=== PATIENT | male | born 1975 | race Two or more races ===

== ENCOUNTER 2019-05-05 04:01 | Emergency (ER) | payer SELFPAY ==
--- NOTE | 2019-05-05 04:50 | ER Document Report ---
ED General - General Chief Complaint: Back Pain Stated Complaint: LOWER BACK PAIN Time Seen by Provider: 05/05/19 04:22 TRAVEL OUTSIDE OF THE [place] IN LAST 30 DAYS: No - HPI Notes: This is a 44-year-old gentleman who presents today with a complaint of difficulty urinating. Patient states that he has been having trouble urinating ever since earlier today. His last urine output was around 1 AM. He states that it was just a little bit. He denies any pain. He denies any back pain, flank pain no abdominal pain. He states, however, that he feels like there is urine in his bladder. He denies any previous history of urinary retention. He denies any hematuria or dysuria. Describes his symptoms as moderate. Past Medical History - Social History Smoking Status: Never Smoker Chew tobacco use (# tins/day): No Frequency of alcohol use: drinks daily Drug Abuse: None Family History: Reviewed & Not Pertinent Patient has suicidal ideation: No Patient has homicidal ideation: No Review of Systems - Review of Systems Gastrointestinal: denies: Abdominal pain, Nausea, Vomiting Genitourinary: Retention. denies: Burning, Dysuria, Frequency, Flank pain, Incontinence Male Genitourinary: denies: Testicular pain Musculoskeletal: denies: Back pain -: Yes All other systems reviewed and negative Physical Exam - Vital signs Vitals: Temp Pulse Resp BP Pulse Ox 97.9 F 100 14 135/89 H 100 05/05/19 04:08 05/05/19 04:08 05/05/19 04:08 05/05/19 04:08 05/05/19 04:08 - General General appearance: Appears well, Alert - Respiratory Respiratory status: No respiratory distress Chest status: Nontender Breath sounds: Normal Chest palpation: Normal - Cardiovascular Rhythm: Regular Heart sounds: Normal auscultation Murmur: No - Abdominal Inspection: Normal Distension: No distension Bowel sounds: Normal Tenderness: Nontender Organomegaly: No organomegaly - Back Back: Normal, Nontender. No: CVA tenderness - Neurological Neuro grossly intact: Yes Cognition: Normal Orientation: AAOx4 [place] Coma Scale Eye Opening: Spontaneous [place] Coma Scale Verbal: Oriented [place] Coma Scale Motor: Obeys Commands [place] Coma Scale Total: 15 Speech: Normal Motor strength normal: LUE, RUE, LLE, RLE Sensory: Normal - Psychological Associated symptoms: Normal affect, Normal mood - Skin Skin Temperature: Warm Skin Moisture: Dry Skin Color: Normal Course - Re-evaluation Re-evalutation: 05/05/19 04:50 Differential diagnosis includes acute urinary retention versus renal insufficiency versus UTI. Will check a bladder scan. Will check basic labs including renal function. 05/05/19 04:59 Bladder Scan reveals only 113 mL's of urine. That is not consistent with acute urinary retention. Patient may just be dehydrated. We will hydrate him. We will check basic labs. 05/05/19 05:53 Patient reevaluated. He is doing well. Renal function is normal. Still waiting for urine sample. I am told by the nurse that he actually went to the bathroom and urinated in the toilet without giving a sample. 05/05/19 06:39 Patient reevaluated. Patient is doing well. Urinalysis unremarkable. He is stable for discharge. He feels better now with IV fluids. - Vital Signs Vital signs: Temp Pulse Resp BP Pulse Ox 97.9 F 100 14 135/89 H 100 05/05/19 04:08 05/05/19 04:08 05/05/19 04:08 05/05/19 04:08 05/05/19 04:08 - Laboratory Result Diagrams: 05/05/19 05:06 05/05/19 05:06 Laboratory results interpreted by me: 05/05/19 05/05/19 05:06 06:16 Glucose 267 H Urine Glucose (UA) >=500 H Urine Ketones TRACE H Discharge - Discharge Clinical Impression: Difficulty urinating, Dehydration Condition: Stable Disposition: OTHER Instructions: Dehydration (OM) Referrals: [facility] [NO LOCAL MD] - Follow up as needed
[2019-05-05] MEDS ORDERED: NORMAL SALINE 1000 ML 1,000 ML IV ONE (04:58)
[2019-05-05 05:20] LABS: ABSOLUTE BASOPHILS # (AUTO) 0.1 10^3/uL (0.0-0.2); ABSOLUTE EOSINOPHILS # (AUTO) 0.1 10^3/uL (0.0-0.6); ABSOLUTE LYMPHOCYTES (AUTO) 1.6 10^3/uL (0.5-4.7); ABSOLUTE MONOCYTES (AUTO) 0.8 10^3/uL (0.1-1.4); ABSOLUTE NEUT (AUTO) 4.8 10^3/uL (1.7-8.2); EOSINOPHILS % (AUTO) 1.2 % (0-6); HEMATOCRIT 46.2 % (37.9-51.0); HEMOGLOBIN 15.9 g/dL (13.5-17.0); LYMPHOCYTES % (AUTO) 22.1 % (13-45); MEAN CORPUSCULAR HEMOGLOBIN 31.4 pg (27.0-33.4); MEAN CORPUSCULAR HGB CONC 34.5 g/dL (32.0-36.0); MEAN CORPUSCULAR VOLUME 91 fl (80-97); MONOCYTES % (AUTO) 10.9 % (3-13); PLATELET COUNT 150 10^3/uL (150-450); RED BLOOD COUNT 5.07 10^6/uL (4.35-5.55); RED CELL DISTRIBUTION WIDTH 12.9 % (11.5-14.0); SEGMENTED NEUTROPHILS % (AUTO) 64.8 % (42-78); TOTAL CELLS COUNTED % (AUTO) 100 %; WHITE BLOOD COUNT 7.4 10^3/uL (4.0-10.5)
[2019-05-05 05:40] LABS: ANION GAP 15 (5-19); BLOOD UREA NITROGEN 8 mg/dL (7-20); CALCIUM 9.7 mg/dL (8.4-10.2); CARBON DIOXIDE 26 mmol/L (22-30); CHLORIDE 99 mmol/L (98-107); GLUCOSE 267 mg/dL (75-110); POTASSIUM 4.3 mmol/L (3.6-5.0)
[2019-05-05 06:27] LABS: APPEARANCE,URINE CLEAR; BILIRUBIN,URINE NEGATIVE (NEGATIVE); COLOR,URINE YELLOW; GLUCOSE, URINE >=500 mg/dL (NEGATIVE); KETONES,URINE TRACE mg/dL (NEGATIVE); LEUKOCYTE ESTERASE,URINE NEGATIVE (NEGATIVE); NITRITE,URINE NEGATIVE (NEGATIVE); PROTEIN,URINE NEGATIVE (NEGATIVE); UROBILINOGEN,URINE NEGATIVE mg/dL (<2.0)
[2019-05-05 06:50] VITALS: BP 130/76
== END 2019-05-05 06:48 | disposition other institution (70) ==
LOC: ER 04:01
DX: E86.0 Dehydration (principal); R30.0 Dysuria; M54.9 Dorsalgia, unspecified
CPT/HCPCS: 99283; 96360; 36415; 85025; 80048; 81001; J7030